=== PATIENT | female | born 1930 | race Caucasian/White ===

== ENCOUNTER 2017-08-22 08:17 | Inpatient (IN) | payer MEDICAID ==
[~2017-08-22] VITALS: Ht 152.4 cm; Wt 67.0 kg
[2017-08-22] MEDS ORDERED: ULTRAM 50MG TAB50 MG PO (09:18)
[2017-08-22] MEDS ORDERED: BYSTOLIC5 MG PO (09:18)
[2017-08-22] MEDS ORDERED: CELEXA 20MG20 MG/TAB PO (09:18)
[2017-08-22] MEDS ORDERED: LAMICTAL 25MG T25 MG PO (09:19)
[2017-08-22] MEDS ORDERED: PREDNISONE10 MG PO (09:19)
[2017-08-22] MEDS ORDERED: ARICEPT 5MG PO (09:19)
[2017-08-22] MEDS ORDERED: SINGULAIR 110 MG/TAB PO (09:20)
[2017-08-22] MEDS ORDERED: ALPHAG-P-0.1-5ML OP (09:20)
[2017-08-22 09:25] LABS: BASO % 0.3 % (0.0-2.0); EOS # 0.1 (0.0-0.7); EOS % 0.7 % (0-4.0); GRAN # 6.1 (1.4-6.5); GRAN % 65.3 % (42.2-75.2); HEMATOCRIT 36.2 % (37.0-47.0); HEMOGLOBIN 11.8 g/dl (12.5-16.0); LYMPH # 2.3 (1.2-3.4); MEAN CELL VOLUME 89 fl (80.0-100.0); MEAN CORPUSCULAR HEMOGLOBIN 29 pg (27.0-31.0); MEAN CORPUSCULAR HGB CONC 33 g/dl (33.0-37.0); MEAN PLATELET VOLUME 9.4 fl (7.4-10.4); MONO # 0.8 (0.1-0.6); MONO % 8.8 % (1.7-9.3); PLATELET COUNT 249 K/mm3 (130-400); RED BLOOD COUNT 4.06 M/mm3 (4.10-5.30); REDCELL DISTRIBUTION WIDTH-CV 14.6 % (11.5-14.5)
[2017-08-22 09:32] LABS: INR 0.9 (0.8-3.0)
[2017-08-22 09:45] LABS: ALBUMIN 3.7 gm/dL (3.5-5.0); BILIRUBIN,TOTAL 0.3 mg/dL (0.0-1.0); CALCIUM 9.2 mg/dL (8.4-10.2); CREATININE, serum 1.3 mg/dL (0.52-1.25); POTASSIUM 4.1 mmol/L (3.4-5.0); TOTAL PROTEIN 7.4 gm/dL (6.4-8.2)
[2017-08-22 10:13] LABS: THYROID STIMULATING HORMONE 0.016 uIU/mL (0.465-4.680)
[2017-08-22] MEDS ORDERED: PRILOSEC 20MG20 MG PO (11:31)
[2017-08-22] MEDS ORDERED: BUMEX 1MG TA1 MG/TA1 PO (11:32)
[2017-08-22 12:48] VITALS: BP 112/56; PULSE 82; TEMP 98.4
[2017-08-22 16:46] VITALS: BP 122/98; PULSE 81; TEMP 98.5
[2017-08-22 20:21] VITALS: BP 151/70; PULSE 112; TEMP 97.3
[2017-08-22 23:52] VITALS: BP 140/48; PULSE 66; TEMP 97.4
[2017-08-23] VITALS (9 sets, daily range): BP systolic 109–157; BP diastolic 42–67; PULSE 53–89; TEMP 97.7–98.8
[2017-08-23 07:04] LABS: BASO % 0.3 % (0.0-2.0); EOS % 0.2 % (0-4.0); GRAN % 78.8 % (42.2-75.2); LYMPH # 1.1 (1.2-3.4); LYMPH % 12.1 % (20.0-51.0); MEAN CELL VOLUME 93 fl (80.0-100.0); MEAN CORPUSCULAR HGB CONC 31 g/dl (33.0-37.0); MEAN PLATELET VOLUME 9.9 fl (7.4-10.4); MONO # 0.7 (0.1-0.6); MONO % 7.9 % (1.7-9.3); PLATELET COUNT 233 K/mm3 (130-400)
[2017-08-23 07:07] LABS: HEMATOCRIT 33.4 % (37.0-47.0); HEMOGLOBIN 10.5 g/dl (12.5-16.0); MEAN CORPUSCULAR HEMOGLOBIN 29 pg (27.0-31.0)
[2017-08-23 07:18] LABS: CALCIUM 8.5 mg/dL (8.4-10.2); CREATININE, serum 1.07 mg/dL (0.52-1.25); POTASSIUM 4.4 mmol/L (3.4-5.0)
[2017-08-24 04:05] VITALS: BP 142/59; PULSE 59; TEMP 98.1
[2017-08-24 07:39] VITALS: BP 162/55; PULSE 56; TEMP 97.9
[2017-08-24] MEDS ORDERED: ELIQUIS 5MG PO (11:07)
[2017-08-24] MEDS ORDERED: LIPITOR 40MG TA40 MG PO (11:08)
[2017-08-24] MEDS ORDERED: BETAPACE 80MG80 MG PO (11:09)
[2017-08-24 11:12] VITALS: BP 115/45; PULSE 57; TEMP 97.9
[2017-08-24 16:06] VITALS: BP 143/51; PULSE 59; TEMP 97.7
== END 2017-08-24 19:03 | disposition home or self-care (01) | DRG 309 ==
LOC: COL.ER 08:17 → MEDICAL 11:13
PROVIDERS: Emergency Medicine; Physician Assistant
DX: I48.91 Unspecified atrial fibrillation (principal); N17.9 Acute kidney failure, unspecified; F03.90 Unspecified dementia, unspecified severity, without behavioral disturbance, psychotic disturbance, mood disturbance, and anxiety; M35.3 Polymyalgia rheumatica; I10 Essential (primary) hypertension; I05.1 Rheumatic mitral insufficiency; F39 Unspecified mood [affective] disorder
CPT/HCPCS: 99223-AI; 99232-AI; 99239; A9502; J1650; J2785; J7030; J7512